=== PATIENT | female | born 1945 | race African-American/Black ===

== ENCOUNTER 2017-01-07 18:30 | Emergency (ER) | payer OTHER ==
--- NOTE | ~2017-01-07 | EKG ---
PATIENT: CAMMIE ESPAÑA UNIT #: [id number] Ventricular Rate: 65 BPM Atrial Rate: 65 BPM P-R Interval: 162 ms QRS Duration: 84 ms Q-T Interval: 428 ms QTC Calculation(Bezet): 445 ms P [place]: 69 degrees Calculated R [place]: 10 degrees Calculated T [place]: 6 degrees Diagnosis Line: Normal sinus rhythm Diagnosis Line: Poor R wave progression questionable lead position Diagnosis Line: or body habitus Otherwise normal ECG Diagnosis Line: Nonspecific ST abnormality Borderline ECG Diagnosis Line: No previous ECGs available Diagnosis Line: Confirmed by ELAYNE MCGEE MD ([id number]) on 01/09/2017 Diagnosis Line: 9:32:38 AM INTERPRETING MD: EVERARDO MYERS
[2017-01-07 16:38] LABS: BASOPHIL# 0.1 X10e3 (0-0.3); BASOPHIL% 0.4 % (0-2.5); DIFF IND NO; EOSINOPHIL% 0.1 % (0.0-7.0); HEMATOCRIT 42.9 % (35.0-45.0); HEMOGLOBIN 13.9 gm/dL (12.0-16.0); LYMPHOCYTE# 1.5 X10e3 (1.0-3.5); LYMPHOCYTE% 10.4 % (17.0-45.0); MEAN CELL VOLUME 93.4 FL (83-96); MEAN CORPUSCULAR HEMOGLOBIN 30.2 PG (28-34); MEAN CORPUSCULAR HGB CONC 32.3 g/dL (30-36); MEAN PLATELET VOLUME 10.2 FL (6.5-11.5); MONOCYTE# 0.7 X10e3 (0-1.0); MONOCYTE% 4.5 % (3.0-12.0); NEUTROPHIL# 12.2 X10e3 (1.5-7.1); NEUTROPHIL% 84.6 % (40-75); PLATELET COUNT 275 X10e3 (140-420); RED BLOOD COUNT 4.59 X10e (3.90-5.30); RED CELL DISTRIBUTION WIDTH 15.3 % (11.0-15.5); WHITE BLOOD COUNT 14.5 X10e3 (4.0-10.5)
[2017-01-07 17:10] LABS: ALBUMIN SERUM 4.4 g/dL (3.5-5.0); ALKALINE PHOSPHATASE 78 U/L (32-92); ALT (SGPT) 22 U/L (10-40); AST (SGOT) 24 U/L (10-42); BILIRUBIN, DIRECT 0.1 mg/dL (0.0-0.2); BILIRUBIN,INDIRECT 0.5 mg/dL (0.0-0.9); BILIRUBIN,TOTAL 0.6 mg/dL (0.2-2.0); BLOOD UREA NITROGEN 17 mg/dL (9-23); BUN/CREATININE RATIO 18.88; CALCIUM SERUM 9.7 mg/dL (8.4-10.2); CARBON DIOXIDE 29 mmol/L (22-31); CHLORIDE 97 mmol/L (100-111); CREATININE SERUM 0.9 mg/dL (0.6-1.4); GLOM FILT RATE Estimated ABOVE60 mL/min (>60); GLUCOSE FASTING 94 mg/dL (70-110); LIPASE 11 U/L (22-51); POTASSIUM 3.7 mmol/L (3.5-5.1); PROTEIN TOTAL SERUM 8.1 g/dL (6.0-8.3); SODIUM 139 mmol/L (135-145)
[~2017-01-07 18:30] MED LIST: ACETAMINOPHEN PO; AMLODIPINE BESY10 MG PO; ASPIRIN PO; ASPIRIN81 M1 PO; ASPIRIN81 M2 PO; ATENOLOL-CHLORT1 TA2 PO; AVAPRO300 M1 PO; BRILINTA90 MG PO; CELEBREX PO; CHLORTHALIDONE25 M1 PO; CRESTOR PO; CRESTOR10 MG PO; EFFIENT10 MG PO; ENDOCET 7.5-3251 TAB PO; EVISTA60 M1 PO; EXFORGE PO; FLEXERIL10 MG PO; FUROSEMIDE40 MG PO; IMDUR-ER30 M3 PO; INVOKANA300 MG PO; IRBESARTAN PO; JANUVIA PO; K-DUR20 ME1 PO; KCL PO; LANTUS SOLOSTAR3 ML SQ; LASIX PO; METOPROLOL ER PO; METOPROLOL SUCC25 MG PO; NITROGLYCERIN0.4 MG; PHENERGAN PO; PRILOSEC PO; RANEXA500 MG PO; ROBAXIN PO; ROSUVASTATIN CA20 MG PO; SULINDAC150 MG PO; TRICOR PO; ULTRAM PO; VAGIFEM10 MCG VG; VICTOZA0.6 MG/0.1 SQ; ZANAFLEX2 M2 PO; ZYLOPRIM PO
[2017-01-07 19:03] LABS: URINE SOURCE CLEAN CATCH
[2017-01-07 19:15] LABS: URINE APPEARANCE CLEAR; URINE BILIRUBIN NEG (NEG); URINE BLOOD NEG (NEG); URINE COLOR YELLOW; URINE GLUCOSE >1000 MG/DL (NEG); URINE KETONE 2+ (NEG); URINE LEUKOCYTE ESTERASE NEG (NEG); URINE NITRATE NEG (NEG); URINE PH 6.5 (5-8); URINE PROTEIN NEG (NEG); URINE SPECIFIC GRAVITY 1.037 (1.003-1.035); URINE UROBILINOGEN 0.2 MG/DL (NEG)
[2017-01-07 19:27] LABS: CULTURE INDICATED? NO
[2017-01-07 19:58] LABS: POC - CKMB <1.0 ng/mL (0.0-7.9); POC - TROPONIN <0.05 ng/mL (<=0.05)
[2017-07-03] MEDS ORDERED: ASPIRIN EC81 M1 PO (15:04)
[2017-07-03] MEDS ORDERED: BRILINTA90 MG PO (15:04)
[2017-07-03] MEDS ORDERED: FLEXERIL10 MG PO (15:05)
[2017-07-03] MEDS ORDERED: CHLORTHALIDONE25 MG PO (15:05)
[2017-07-03] MEDS ORDERED: INVOKANA300 MG PO (15:06)
[2017-07-03] MEDS ORDERED: IRBESARTAN300 MG PO (15:07)
[2017-07-03] MEDS ORDERED: LANTUS SOL100 UNIT/1 SUBQ ×2 (15:08→15:09)
[2017-07-03] MEDS ORDERED: ISOSORBIDE DINI30 MG PO (15:08)
[2017-07-03] MEDS ORDERED: AMLODIPINE BESY10 MG PO (15:09)
[2017-07-03] MEDS ORDERED: ALLOPURINOL300 MG PO (15:09)
[2017-07-03] MEDS ORDERED: LIPITOR20 MG PO (15:10)
[2017-07-03] MEDS ORDERED: K-DUR20 ME1 PO (15:10)
[2017-07-03] MEDS ORDERED: ULTRAM PO (15:11)
[2017-07-03] MEDS ORDERED: NITROGLYCERIN4.1 GM TL (15:12)
[2017-07-03] MEDS ORDERED: METOPROLOL TAR25 MG PO (15:12)
== END 2017-01-07 21:53 | disposition home or self-care (01) ==
LOC: CED 18:30
PROVIDERS: Emergency Medicine
DX: R11.0 Nausea (principal); E11.9 Type 2 diabetes mellitus without complications; I10 Essential (primary) hypertension; Z90.49 Acquired absence of other specified parts of digestive tract; Z88.5 Allergy status to narcotic agent
CPT/HCPCS: 36415; 80048; 80076; 81003; 82553; 83690; 83880; 84484; 85025; 93005; 96361; 96374; 96375; 99284; C9113; J2405; J2550